=== PATIENT | female | born 1985 | race African-American/Black ===

== ENCOUNTER 2021-03-31 15:58 | Emergency (ER) | payer OTHER ==
[~2021-03-31] VITALS: Ht 167.6 cm; Wt 113.4 kg
[~2021-03-31 15:58] MED LIST: ADULT LOW DOSE81 MG PO; ALPRAZOLAM2 M1 PO; AMITRIPTYLINE H75 M1 PO; BACTRIM DS TAB1 EACH PO; CALCIUM +D & M1 EACH; CELEXA 20 MG TA20 M1 PO; KEFLEX500 MG PO; LOVASTAT20; PRENATAL; PROTONIX40 M2 PO; YASMIN 28 TABL1 EACH PO
[2021-03-31] MEDS ORDERED: PROAIR HFA8.5 GM INH (17:40)
[2021-03-31 17:58] VITALS: BP 127/89
== END 2021-03-31 18:02 | disposition home or self-care (01) ==
LOC: ER 15:58
DX: U07.1 COVID-19 (principal); J12.82 Pneumonia due to coronavirus disease 2019; Z88.1 Allergy status to other antibiotic agents; Z91.041 Radiographic dye allergy status